=== PATIENT | female | born 1990 | race Caucasian/White ===

== ENCOUNTER 2024-04-27 11:17 | Day surgery (SDC) | payer BC ==
[2024-04-24 12:04] LABS: Absolute Eosinophils 0.2 K/uL (0-0.5); Absolute Lymphocytes (CBC) 1.5 K/uL (0.7-4.9); Absolute Monocytes 0.3 K/uL (0.1-1.3); Basophils % 0.7 % (0-1.3); Eosinophils % 2.8 % (0-4.4); Hematocrit 36.1 % (36.0-45.0); Hemoglobin 12.2 g/dL (12.0-15.0); Lymphocytes % 25.5 % (15.3-44.8); MCH 31.1 pg (27.0-35.0); MCHC 33.7 g/dL (32.0-36.0); MCV 92.4 fL (80-100); MPV 9.6 fL (7.6-11.3); Monocytes % 5.3 % (3.3-12.3); Neutrophils % 65.7 % (41.7-73.7); Platelets 324 thou/uL (152-406); RBC Red Blood Cell Count 3.91 M/uL (3.86-4.86); Red Cell Distribution Width 12.7 % (12.1-15.2)
[2024-04-24 12:11] LABS: Specific Gravity 1.021 (1.005-1.030); Sqamous Epithelial <5 /HPF (None Seen); Urine Bacteria <20 /HPF (<20); Urine Bilirubin NEGATIVE (Negative); Urine Blood Negative (Negative); Urine Clarity Turbid (Clear); Urine Color Light-Yellow (Yellow); Urine Crystals Unidentified Few /HPF (None Seen); Urine Culture Reflex Order NOT NEEDED; Urine Glucose NEGATIVE (Negative); Urine Ketones NEGATIVE (Negative); Urine Microscopic Reflex YN ORDER UMIC; Urine Nitrite NEGATIVE (Negative); Urine Protein NEGATIVE (Negative); Urine RBC <5 /HPF (None Seen); Urine Urobilinogen Normal (Normal); Urine WBC <5 /HPF (<5); Urine pH 5.5 (5.0-7.0)
[2024-04-24 12:16] LABS: Anion Gap 8.2 mEq/L (5.0-15.0); Potassium 4.2 mEq/L (3.5-5.1)
--- NOTE | 2024-04-26 13:05 | EKG ---
Test Date: 2024-04-24 Test Time: 10:36:55 Wood Grinder: CÉSAR MEASUREMENT RESULTS: Intervals: Rate: 57 WI: 130 QRSD: 90 QT: 436 QTc: 424 [place]: P: 48 WI: 130 QRS: 26 T: 20 INTERPRETIVE STATEMENTS: Sinus bradycardia with sinus arrhythmia Low voltage QRS Nonspecific T wave abnormality Abnormal ECG No previous ECG available for comparison Electronically Signed On 04-26-24 12:57:19 CDT by Ugo Daugherty
[2024-04-27] MEDS ORDERED: HEPARIN 5000 UNIT/ML 1 ML VIAL ONE (11:47)
[2024-04-27] MEDS ORDERED: CEFAZOLIN SODIUM 2 GM/VIAL ONE (11:47)
[2024-04-27] MEDS ORDERED: CEFAZOLIN SODIUM 1 GM/VIAL ONE (11:47)
[2024-04-27] MEDS ORDERED: Ringers Lactate 0 ML IV ONE (11:47)
[2024-04-27] MEDS ORDERED: SCOPOLAMINE HYDROBROMIDE PATCH TD ONE (11:47)
[2024-04-27] MEDS ORDERED: BUPIVACAINE 0.25% PF 30 ML VIAL ONE (12:20)
[2024-04-27] MEDS ORDERED: FENTANYL CITR 100 MCG/2 ML ONE ×2 (13:19→16:05)
[2024-04-27] MEDS ORDERED: MIDAZOLAM HCL 2 MG/2 ML INJ ONE (13:19)
[2024-04-27] MEDS ORDERED: propofoL 200 MG/20 ML VIAL IV ONE (13:27)
[2024-04-27] MEDS ORDERED: ONDANSETRON 4 MG/2 ML VIAL ONE (13:27)
[2024-04-27] MEDS ORDERED: ROCURONIUM 50 MG/5 ML VIAL IV ONE (13:27)
[2024-04-27] MEDS ORDERED: LIDOCAINE 2% MPF 5 ML VIAL ONE ×2 (13:27→14:27)
[2024-04-27] MEDS ORDERED: KETOROLAC 30 MG/ML INJ ONE (13:27)
[2024-04-27] MEDS ORDERED: dexAMETHasone 10 MG/ML VIAL ONE (13:27)
[2024-04-27] MEDS ORDERED: LANO/MINERAL OIL/PETRO 3.5 GM ONE (13:48)
[2024-04-27] MEDS ORDERED: NS 0.9% VIAL 10 ML ONE (13:48)
[2024-04-27] MEDS ORDERED: NS 0.9% VIAL 20 ML ONE (13:49)
[2024-04-27] MEDS ORDERED: VECURONIUM 10 MG/VIAL IV ONE (14:19)
[2024-04-27] MEDS ORDERED: KETAMINE HCL IN 0.9 % NACL 50 MG/5 ML SYRINGE IV ONE (14:28)
[2024-04-27] MEDS ORDERED: MAGNESIUM SULFATE 1 gm IVPB 1 GM/100 ML BAG IV ONE (14:30)
[2024-04-27] MEDS ORDERED: DEXMEDETOMIDINE HCL 200 MCG/2 ML VIAL ONE (14:32)
[2024-04-27] MEDS ORDERED: Ringers Lactate 1,000 ML IV ONE ×2 (14:33→16:33)
[2024-04-27] MEDS ORDERED: Mastisol Adhesive Liq ONE (15:48)
[2024-04-27] MEDS ORDERED: GLYCOPYRROLATE 0.2 MG/ML SYR ONE (15:58)
[2024-04-27] MEDS ORDERED: NEOSTIGMINE 1 MG/ML -10 ML VIAL ONE (15:58)
[2024-04-27 18:38] VITALS: TEMP 97.1; O2SAT 100
[2024-04-27 19:05] VITALS: BP 127/46
--- NOTE | 2024-04-28 02:36 | OP ---
Date of Procedure: 04/27/2024 Surgeon: Brooke Pollard MD Public Speaking Professor: Elsy Camacho. Preoperative Diagnoses: Pelvic pain, dysmenorrhea, and heavy periods. Postoperative Diagnoses: Pelvic pain, dysmenorrhea, heavy periods, right ovarian cyst, and bilateral tubal adhesions. No endometriosis. Procedures Performed: Total laparoscopic hysterectomy, bilateral salpingectomy, right ovarian cystec salvador, some lysis of adhesions from the omentum to the anterior abdominal wall to the sigmoid colon to the left lateral wall and bladder adhesions. Estimated Blood Loss: 50. Specimens: Uterus, bilateral tubes, and right ovarian cyst. Complications: No complications. Drains: No drains. Condition: Stable. Findings: Right ovarian cyst was larger and appeared to be simple. This was excised and the ovary p reserved, sutured on the right just to avoid adhesions. On the left side, small cyst present. Tiny cystic area on the serosa, did not appear to be endometriosis, likely from the ovarian cyst wall. Tu bes were significantly attached on top of the ovary on both sides and along the utero-ovarian ligamen t. No endometriosis was noted. All scar adhesions were present and taken down without any problems. Vaginal cuff was closed with 0 PDS x5 and ovary closed with 3-0 Monocryl. Indications: The patient is a 33-year-old with 2 C-sections, presenting with heavy periods, pelvic p ain, history of polycystic ovarian syndrome, family history of thrombosis. Her mother fr om PE and maternal grandmother and aunt with DVT. The patient has no personal history of venous thro mboembolism. She was seen by Dr. Soriano and preoperative anticoagulant was given for this patient. Ultrasound unremarkable. No significant adnexal masses were noted. History of PCOS. After discussing all the benefits and risks and complications of the procedure and alternatives, give n the history of VTE in the family, combination hormones were not a good option as they increase the risk of thromboembolism. CT scan showed a small umbilical hernia, but otherwise no other abnormaliti es. So, we discussed all the different options for this patient and this included an IUD or a hyster ectomy. The patient wanted to proceed with a hysterectomy. Also given the fact that she has pelvic pain and dysmenorrhea, diagnostic laparoscopy with possible endometriosis excision found or hysterect shanice alongside the same were discussed and the patient consented for this. She was completely done with childbearing and had history of tubal ligation in 2018. Description Of Procedure: After informed consent was re-verified in the preoperative area, she was t akmiryam back to the OR, placed in supine fashion on the operating table. 2 g of Ancef were given. SCDs were placed. Arms were tucked by the side. Abdomen was prepped with ChloraPrep. Vulva, vagina, and perineum with Betadine and draped in a sterile fashion. After time-out was done. The patient was g rounded. SCDs were started. Procedure was started. Speculum was placed to expose the cervix. Anterior lip was grasped with a single-tooth tenaculum and dilated to 16-Greenlandic and a medium cup uterine manipulator was introduced and fixed in place. Then, the speculum was removed. Gonsalez was placed to drain the bladder and attached to a drainage bag and t his area was draped. 1 cm infraumbilical curvilinear incision was made with a scalpel using the open laparoscopy technique . Fascia was incised. There was umbilical hernia, which I avoided and only incised the fascia under neath it, so once the peritoneum was entered, Drake was introduced after adequate insufflation. Sit e of entry was checked and there were omental adhesions in the lower anterior abdominal wall. So, a 5 left lower quadrant and left upper quadrant ports were placed with triangulation and under direct v ision. The omental adhesions were taken down with the help of the LigaSure carefully and completely. The patient was placed in Trendelenburg, and a suprapubic 10 port was placed. 0.25% Marcaine was i njected at the fascia and the skin for all incisions. The adhesions of the sigmoid colon and the left lateral wall were taken down with sharp dissection as well as the LigaSure. Then, on examination, no endometriosis was present. Bilateral tubal adhesion s and cysts as described. This cyst on the right side was significantly large and the plan was to ex cise this and send it for biopsy. Ovarian cystectomy was performed by opening up the cyst wall draining the fluid and the cyst wall was excised from the floor of the ovary and handed off for permanent pathology. Hemostasis was secured with the bipolar carefully and the ovary closed with the help of 3-0 Monocryl in a buried figure-of-e ight fashion and there was good hemostasis. Hysterectomy and bilateral salpingectomy: Tubes were released and the distal portion from the ovary excised along the mesosalpinx by dissecting out the tubal adhesions on the medial aspect and then simon ing the tube at its bottom. The utero-ovarian ligament was taken down. First, the left side was simon en and the utero-ovarian ligament was taken down. The round ligament was taken down. Anterior perit oneum opened up to raise the bladder flap and posterior peritoneum opened to dissect the ureter later ally and opened up the vessels and take the peritoneum down to the posterior cuff. The broad ligamen t was taken down with the help of the LigaSure and once the vessels were skeletonized, the anterior v aginal wall was dissected and the bladder was dissected inferiorly. Posterior peritoneum was incised palpably to expose the entire pedicle of the vessels. On the right side, the tube was taken down from the proximal end and then the distal end as well and excised and handed off for permanent pathology and the utero-ovarian ligament was taken down as well as the round ligament anterior broad ligament connected and bladder flap completed posteriorly. Radha toneum taken down to the posterior cup and ureter dissected laterally. Broad ligament was taken down with the LigaSure and the vessels were taken down with the help of the LigaSure. Left side vessels were also taken via the LigaSure and cardinal ligaments as well with bipolar curved tip as well as th e LigaSure. A circumferential colpotomy was performed with a monopolar hook blade and the specimen d etached and pulled out through the vaginal canal. Thorough irrigation and suction were performed. There was 1 area at 11 o'clock on the cuff that was bleeding which was cauterized with the help of the bipolar. Then, simple 0 PDS sutures at both angle s were placed in 3 [id number] in the middle including the uterosacrals back and reattaching the m to the cuff. No evidence of electrical, mechanical, or thermal injury to the ureters or the bowel. Thorough irrigation was performed. Excellent hemostasis was ensured at all pedicles. All the troc ars were removed under direct vision. The patient was then desufflated. Drake removed. Fascia at the umbilicus closed with the tag sutures tied together and simple 0 Vicryl stitch at the suprapubic fascial side. Skin incisions, 4-0 Monocryl, interrupted at all sites. Gonsalez and vaginal occluder we re removed. Instrument, needle, and sponge counts were correct at the end of the case. The patient was recovered and taken to PACU in stable condition. MARKUS Voice ID: [id number] Report ID: [id number]
== END 2024-04-27 19:00 | disposition home or self-care (01) ==
LOC: OR 11:17
PROVIDERS: ATTEND Obstetrics & Gynecology
PROC: 0UT74ZZ Resection of Bilateral Fallopian Tubes, Percutaneous Endoscopic Approach (ICD-10-PCS; 2024-04-27)
PROC: 0UB04ZZ Excision of Right Ovary, Percutaneous Endoscopic Approach (ICD-10-PCS; 2024-04-27)
PROC: 0UT94ZZ Resection of Uterus, Percutaneous Endoscopic Approach (ICD-10-PCS; principal; 2024-04-27 12:30)
DX: R10.2 Pelvic and perineal pain (principal); N83.201 Unspecified ovarian cyst, right side; N84.1 Polyp of cervix uteri; N88.8 Other specified noninflammatory disorders of cervix uteri
CPT/HCPCS: 58571; 58662; 93005; 85025; 81001; 80048; 36415; 86900; 86850; 81025; 86901; 88304; 88305; J1644; J3475; A4216 ×2; J2704; J2710; J2001 ×2; J2250; J3010 ×2; J1100; J2405; J7120 ×2; J0690; 88307